=== PATIENT | female | born 1980 | race American Indian/Alaskan Native ===

== ENCOUNTER 2017-02-24 20:51 | Emergency (ER) | payer MEDICARE, OTHER ==
[2017-02-24 20:51] VITALS: BMI 53.2
[2017-02-24 21:01] VITALS: BP 160/77; PULSE 88; RESP 16; TEMP 97.9; O2SAT 100
--- NOTE | 2017-02-24 22:00 | ED PDOC ---
"HPI: Back Time Seen by Provider: 02/24/17 21:05 Chief Complaint (Nursing): Back Pain Chief Complaint (Provider): back pain acute History Per: Patient History/Exam Limitations: no limitations Additional Complaint(s): 36yo F in Ed for eval of acute lower back pain noted 2hrs [employer] while getting out of car-states that she felt pain to the flank area without radiation of pain to her Lower extremity. no fever no chills no nasuea or vomiting no abd pain no hematuira or dysuira. Past Medical History Reviewed: Historical Data, Nursing Documentation, Vital Signs Vital Signs: Last Vital Signs Temp 97.9 F 02/24/17 20:55 Pulse 88 02/24/17 20:55 Resp 16 02/24/17 20:55 BP 160/77 H 02/24/17 20:55 Pulse Ox 100 02/24/17 20:55 - Medical History PMH: Asthma, HTN Denies: Depression, Chronic Kidney Disease - Surgical History Surgical History: Back Surgery - Family History Family History: States: Unknown Family Hx - Immunization History Hx Tetanus Toxoid Vaccination: No Hx Influenza Vaccination: No Hx Pneumococcal Vaccination: No - Home Medications Home Medications: Ambulatory Orders Medication Instructions Recorded Albuterol 0.083% [Albuterol 0.083% 2.5 mg IH Q6 PRN #20 neb 12/02/16 Inhal Betty (2.5 mg/3 ml) UD] Albuterol HFA [Ventolin HFA 90 2 puff IH Q4H PRN 12/02/16 mcg/actuation (8 g)] Azithromycin [Zithromax] 250 mg PO DAILY #6 tab 12/02/16 Montelukast [Singulair] 10 mg PO DAILY 12/02/16 predniSONE [Prednisone] 60 mg PO DAILY #15 tab 12/02/16 Acetaminophen [Tylenol 325mg tab] 650 mg PO Q4 #30 tab 02/24/17 Ciprofloxacin [Cipro] 250 mg PO BID #14 tab 02/24/17 Tamsulosin HCl [Flomax] 0.4 mg PO DAILY #14 cap.er.24h 02/24/17 - Allergies Allergies/Adverse Reactions: Allergies Allergy/AdvReac Type Severity Reaction Status Date / Time cat dander Allergy Mild ITCHING Verified 06/14/16 23:46 dog dander Allergy Mild ITCHING Verified 06/14/16 23:46 shellfish derived Allergy ANAPHYLAXIS Verified 06/14/16 23:46 shrimp Allergy ANAPHYLAXIS Verified 06/14/16 23:46 Review of Systems ROS Statement: Except As Marked, All Systems Reviewed And Found Negative Musculoskeletal: Positive for: Back Pain Physical Exam - Reviewed Nursing Documentation Reviewed: Yes Vital Signs Reviewed: Yes - Physical Exam Appears: Positive for: Well, Non-toxic, No Acute Distress Skin: Positive for: Normal Color, Warm, DRY Cardiovascular/Chest: Positive for: Regular Rate, Rhythm Respiratory: Positive for: CNT, Normal Breath Sounds Gastrointestinal/Abdominal: Positive for: Normal Exam, Bowel Sounds, Soft. Negative for: Tenderness Back: Positive for: L CVA Tenderness, R CVA Tenderness. Negative for: Vertebral Tenderness Extremity: Positive for: Normal ROM. Negative for: Tenderness, Deformity, Swelling Neurologic/Psych: Positive for: Alert, Oriented - Laboratory Results Urine POC: Negative Urine dip results: Positive for: Ketones, Bilirubin, Protein. Negative for: Leukocyte Esterase, Blood, Nitrate - ECG O2 Sat by Pulse Oximetry: 100 - Progress ED Course And Treament: pt will get CT scna of abd/pelvis r/o renal stone. Orders Category Date Time Status ABD & PELVIS W/O PO OR IV CONT [CT] Stat CT 02/24/17 21:32 Ordered ED Urine dipstick (POC) Stat ED Care 02/24/17 21:57 Ordered UPreg [ED Urine (POC)] Stat ED Care 02/24/17 21:57 Ordered traMADol [Ultram] Med 02/24/17 21:33 Stat 50 mg PO STAT STA Medical Decision Making Medical Decision Making: ct scan: FINDINGS: Lower thorax: The bilateral lung bases are clear. ABDOMEN: Liver: No acute findings Gallbladder and bile ducts: No acute finding. No calcified stones. No intra- extrahepatic biliary ductal dilation. Pancreas: Limited evaluation secondary to the lack of intravenous contrast. Spleen: No acute findings. Adrenals: No acute findings. Kidneys and ureters: Mild bilateral hydroureteronephrosis. Multiple calcifications are identified within the pelvis. These calcifications appear to be posterior and lateral to the course of the bilateral ureters rather than obstructing intraureteral calcification. PELVIS: Bladder: No acute findings. Reproductive: No acute findings. Appendix: The appendix is of normal caliber (series 3, image 98; series 601 image 79). TEOFILO ORTEGA | Final Radiology Report CONFIDENTIALITY STATEMENT This report is intended only for use by the referring physician, and only in accordance with law. If you received this in error, call [phone]. Page 2 of 2 ABDOMEN and PELVIS: Stomach and bowel: No acute findings. Fat containing umbilical hernia. Peritoneum: No acute findings. Lymph nodes: Limited evaluation without intravenous contrast. Vasculature: No aortic aneurysm. Bones: No acute fracture. IMPRESSION: Mild bilateral hydroureteronephrosis with multiple punctate calcifications in the pelvis, which appear to lie outside the course of the bilateral ureters. dx: pt will need f/u with urology and will be given flomax, cipro and tylenol pt d/c with stable VS. well appearing. Disposition - Clinical Impression Clinical Impression: Renal stone - Patient ED Disposition Is Patient to be Admitted: No Counseled Patient/Family Regarding: Studies Performed, Diagnosis, Need For Followup, Rx Given - Disposition Referrals: Nathaniel Byrnes MD [Medical Doctor] - Elijah Ramos Jr., MD [Staff Provider] - Disposition: Routine/Home Disposition Time: 23:14 Condition: STABLE Prescriptions: Acetaminophen [Tylenol 325mg tab] 650 mg PO Q4 #30 tab Ciprofloxacin [Cipro] 250 mg PO BID #14 tab Tamsulosin HCl [Flomax] 0.4 mg PO DAILY #14 cap.er.24h Instructions: Kidney Stones (ED), Renal Colic (ED) Forms: [employer] ([place]ian)"
--- NOTE | 2017-02-24 22:55 | CT ---
EXAM: CT Abdomen and Pelvis Without Intravenous Contrast CLINICAL HISTORY: 36 years old, female; Pain; Other: Costovertibral angle left/right tenderness; Prior surgery; Surgery date: 6+ months; Surgery type: 1 . Herniated l-1 surgery in 2015; Additional info: CVA left/right tendereness TECHNIQUE: Axial computed tomography images of the abdomen and pelvis without intravenous contrast. All CT scans at this facility use one or more dose reduction techniques, viz.: automated exposure control; ma/kV adjustment per patient size (including targeted exams where dose is matched to indication; i.e. head); or iterative reconstruction technique. Coronal and sagittal reformatted images were created and reviewed. COMPARISON: No relevant prior studies available. FINDINGS: Lower thorax: The bilateral lung bases are clear. ABDOMEN: Liver: No acute findings Gallbladder and bile ducts: No acute finding. No calcified stones. No intra-extrahepatic biliary ductal dilation. Pancreas: Limited evaluation secondary to the lack of intravenous contrast. Spleen: No acute findings. Adrenals: No acute findings. Kidneys and ureters: Mild bilateral hydroureteronephrosis. Multiple calcifications are identified within the pelvis. These calcifications appear to be posterior and lateral to the course of the bilateral ureters rather than obstructing intraureteral calcification. PELVIS: Bladder: No acute findings. Reproductive: No acute findings. Appendix: The appendix is of normal caliber (series 3, image 98; series 601 image 79). ABDOMEN and PELVIS: Stomach and bowel: No acute findings. Fat containing umbilical hernia. Peritoneum: No acute findings. Lymph nodes: Limited evaluation without intravenous contrast. Vasculature: No aortic aneurysm. Bones: No acute fracture. IMPRESSION: Mild bilateral hydroureteronephrosis with multiple punctate calcifications in the pelvis, which appear to lie outside the course of the bilateral ureters.
== END 2017-02-24 23:58 | disposition home or self-care (01) ==
LOC: H.ER 20:51
DX: N20.0 Calculus of kidney (principal); Z86.73 Personal history of transient ischemic attack (TIA), and cerebral infarction without residual deficits

== ENCOUNTER 2017-11-04 14:59 | Emergency (ER) | payer MEDICARE, OTHER ==
[2017-11-04 14:59] VITALS: BMI 53.2
[2017-11-04 15:22] VITALS: BP 139/77; PULSE 92; RESP 18; TEMP 98.2; O2SAT 99
[2017-11-04] MEDS ORDERED: Naproxen 500 MG TAB PO STA (15:43)
--- NOTE | 2017-11-04 15:56 | ED PDOC ---
HPI: Back Time Seen by Provider: 11/04/17 15:30 Chief Complaint (Nursing): Back Pain Chief Complaint (Provider): Back Pain History Per: Patient History/Exam Limitations: no limitations Onset/Duration Of Symptoms: Hrs (Today) Current Symptoms Are (Timing): Still Present Quality Of Discomfort: "Pain" Previous Symptoms: Back Pain Associated Symptoms: None Exacerbating Factor(s): Other (bowel movements) Additional Complaint(s): Yazan Villanueva is a 37 year old female, with a past medical history of back problems, who presents to the emergency department complaining of lower back pain s/p fall yesterday. Patient states she slipped and fell from 3 steps of stairs yesterday and landed on buttocks. Patient is currently complaining of pain to her lower sacral region and reports pain with bowel movements. She took ibuprofen for the pain. She denies any head injuries, fever, chills, incontinence, weakness, numbness or tingling. No further medical complaints. PMD: Elijah Olguin Past Medical History Reviewed: Historical Data, Nursing Documentation, Vital Signs Vital Signs: Last Vital Signs Temp 98.2 F 11/04/17 15:18 Pulse 92 H 11/04/17 15:18 Resp 18 11/04/17 15:18 BP 139/77 11/04/17 15:18 Pulse Ox 99 11/04/17 15:18 - Medical History PMH: Asthma, HTN, Migraine Denies: Depression, Chronic Kidney Disease - Surgical History Surgical History: Back Surgery - Family History Family History: States: Unknown Family Hx - Social History Current smoker - smoking cessation education provided: No Alcohol: Social Drugs: Cannabis - Immunization History Hx Tetanus Toxoid Vaccination: No Hx Influenza Vaccination: No Hx Pneumococcal Vaccination: No - Home Medications Home Medications: Ambulatory Orders Medication Instructions Recorded Albuterol HFA [Ventolin HFA 90 2 puff IH Q4H PRN 12/02/16 mcg/actuation (8 g)] Albuterol 0.083% [Albuterol 0.083% 1 vial IH TID PRN #1 packet 10/10/17 Inhal Betty (2.5 mg/3 ml) UD] Albuterol HFA [Ventolin HFA 90 2 puff IH [id number] PRN #1 inhaler 10/10/17 mcg/actuation (8 g)] Cyclobenzaprine [Cyclobenzaprine 10 mg PO Q8 PRN 5 Days #15 tab 10/23/17 HCl] Famotidine [Pepcid] 20 mg PO DAILY 10 Days #10 tab 10/23/17 Docusate Sodium [Colace] 100 mg PO BID #10 capsule 11/04/17 Naproxen 375 mg PO Q8 PRN #21 tablet 11/04/17 - Allergies Allergies/Adverse Reactions: Allergies Allergy/AdvReac Type Severity Reaction Status Date / Time cat dander Allergy Mild ITCHING Verified 10/22/17 23:36 dog dander Allergy Mild ITCHING Verified 10/22/17 23:36 shellfish derived Allergy ANAPHYLAXIS Verified 10/22/17 23:36 shrimp Allergy ANAPHYLAXIS Verified 10/22/17 23:36 Review of Systems ROS Statement: Except As Marked, All Systems Reviewed And Found Negative Constitutional: Negative for: Fever, Chills Genitourinary Female: Negative for: Incontinence Musculoskeletal: Positive for: Back Pain (lower sacral) Neurological: Negative for: Weakness, Numbness (tingling) Physical Exam - Reviewed Nursing Documentation Reviewed: Yes Vital Signs Reviewed: Yes - Physical Exam Appears: Positive for: Non-toxic, No Acute Distress Head Exam: Positive for: ATRAUMATIC, NORMOCEPHALIC Skin: Positive for: Normal Color, Warm, Dry Eye Exam: Positive for: Normal appearance, EOMI, PERRL Neck: Positive for: Painless ROM Cardiovascular/Chest: Positive for: Regular Rate, Rhythm. Negative for: Murmur Respiratory: Positive for: Normal Breath Sounds. Negative for: Respiratory Distress Back: Positive for: Other (minimal tenderness to lower lumbar area. Patient notes tenderness by sacrum) Extremity: Positive for: Normal ROM (upper and lower extremities). Negative for : Deformity, Swelling Neurologic/Psych: Positive for: Alert, Oriented. Negative for: Motor/Sensory Deficits - ECG O2 Sat by Pulse Oximetry: 99 (RA) Pulse Ox Interpretation: Normal Medical Decision Making Medical Decision Making: Initial Impression: back pain s/p fall Initial Plan: --Urine --Naproxen 500 mg PO --Sacrum &/or Coccyx (Min 2vw) [RAD] --Reevaluation 16:33 Sacrum/Coccyx x-ray FINDINGS: BONES: There is no evidence of acute displaced fracture in the sacrum. There is mild cortical step-off in the 2nd coccygeal segment which could represent a mildly displaced fracture. The sacrococcygeal angulation is normal. SACROILIAC JOINTS: Unremarkable. OTHER FINDINGS: None. IMPRESSION: Question of mildly displaced fracture in the 2nd coccygeal segment. No acute displaced fracture in the sacrum. Scribe Attestation: Documented by Antonio Torres, acting as a scribe for Owen Egan PA-C Provider Scribe Attestation: All medical record entries made by the Scribe were at my direction and personally dictated by me. I have reviewed the chart and agree that the record accurately reflects my personal performance of the history, physical exam, medical decision making, and the department course for this patient. I have also personally directed, reviewed, and agree with the discharge instructions and disposition. Disposition - Clinical Impression Clinical Impression: Coccygeal fracture - Patient ED Disposition Is Patient to be Admitted: No - Disposition Referrals: [facility] [Outside] Disposition: Routine/Home Disposition Time: 16:35 Condition: FAIR Prescriptions: Docusate Sodium [Colace] 100 mg PO BID #10 capsule Naproxen 375 mg PO Q8 PRN #21 tablet PRN Reason: Pain, Moderate (4-7) Instructions: Coccyx Fracture (DC) Forms: [facility] ED School/Work Excuse
[2017-11-04] MEDS ORDERED: Naproxen 500 MG TAB PO ONE (16:18)
--- NOTE | 2017-11-04 16:35 | RAD ---
PROCEDURE: Radiographs of the Sacrum and Coccyx HISTORY: Injury COMPARISON: None available. TECHNIQUE: Frontal and lateral views of the sacrum and coccyx FINDINGS: BONES: There is no evidence of acute displaced fracture in the sacrum. There is mild cortical step-off in the 2nd coccygeal segment which could represent a mildly displaced fracture. The sacrococcygeal angulation is normal. SACROILIAC JOINTS: Unremarkable. OTHER FINDINGS: None. IMPRESSION: Question of mildly displaced fracture in the 2nd coccygeal segment. No acute displaced fracture in the sacrum.
== END 2017-11-04 16:47 | disposition home or self-care (01) ==
LOC: H.ER 14:59
DX: S32.2XXA Fracture of coccyx, initial encounter for closed fracture (principal); W10.9XXA Fall (on) (from) unspecified stairs and steps, initial encounter; Y92.89 Other specified places as the place of occurrence of the external cause; I10 Essential (primary) hypertension